=== PATIENT | female | born 1980 | race American Indian/Alaskan Native ===

== ENCOUNTER 2021-02-22 10:03 | Emergency (ER) | payer SELFPAY ==
[2021-02-22 11:47] VITALS: BP 148/95
--- NOTE | 2021-02-22 12:12 | Emergency Department Report ---
ED Back Pain/Injury HPI - General Chief Complaint: Back Pain/Injury Stated Complaint: BACK PAIN Time Seen by Provider: 02/22/21 12:04 Source: patient Limitations: No Limitations - History of Present Illness Initial Comments: Patient presents with lower back pain. She has had a history of disc disease. She last had an MRI she believes a decade ago. Over the last 10 years, she has actually lost weight. Her pain is worsened. It is still left-sided. There is still left radicular symptoms. She came in for evaluation treatment because her symptoms are getting worse. This does not seem to be responding to [id number] medications as previous. She denies new injury. She denies new numbness or tingling in the arms or legs. She has had no new saddle anesthesia. There is no new incontinence. She is primarily here for outpatient referral, analgesia, and follow-up. - Related Data Previous Rx's Medication Instructions Recorded Last Taken Type Ibuprofen [Motrin] 800 mg PO Q8HR PRN #30 tablet 02/22/21 Unknown Rx Lidocaine [Lidoderm] 1 each TP DAILY #30 patch 02/22/21 Unknown Rx Allergies Allergy/AdvReac Type Severity Reaction Status Date / Time No Known Allergies Allergy Unverified 02/22/21 11:47 ED Review of Systems ROS: Stated complaint: BACK PAIN Other details as noted in HPI Comment: All other systems reviewed and negative Constitutional: denies: fever Eyes: denies: vision change ENT: denies: throat pain Respiratory: denies: cough Cardiovascular: denies: chest pain Endocrine: denies: unexplained weight loss Gastrointestinal: denies: abdominal pain Genitourinary: denies: dysuria Musculoskeletal: as per HPI Skin: denies: rash Neurological: denies: headache Hematological/Lymphatic: denies: easy bruising ED Past Medical Hx - Past Medical History Previous Medical History?: Yes Additional medical history: Disc disease - Family History Family history: no significant - Medications Home Medications: Home Medications Medication Instructions Recorded Confirmed Last Taken Type Ibuprofen [Motrin] 800 mg PO Q8HR PRN #30 tablet 02/22/21 Unknown Rx Lidocaine [Lidoderm] 1 each TP DAILY #30 patch 02/22/21 Unknown Rx ED Physical Exam - General Limitations: No Limitations, Other (Pulse ox noted and normal) General appearance: alert, in no apparent distress - Head Head exam: Present: atraumatic, normocephalic - Eye Eye exam: Present: normal appearance, EOMI - ENT ENT exam: Present: normal orophraynx, normal external ear exam - Neck Neck exam: Present: normal inspection. Absent: meningismus - Respiratory Respiratory exam: Present: normal lung sounds bilaterally. Absent: respiratory distress - Cardiovascular Cardiovascular Exam: Present: regular rate, normal rhythm - GI/Abdominal GI/Abdominal exam: Present: soft. Absent: tenderness - Extremities Exam Extremities exam: Present: normal capillary refill - Back Exam Back exam: Present: paraspinal tenderness (Left paraspinous). Absent: CVA tenderness (R), CVA tenderness (L) - Neurological Exam Neurological exam: Present: alert, oriented X3, CN II-XII intact, normal gait, other (Negative straight leg raise) - Psychiatric Psychiatric exam: Present: normal affect, normal mood - Skin Skin exam: Present: warm, dry ED Course Vital Signs 02/22/21 11:43 Temperature 98.3 F Pulse Rate 76 Respiratory 16 Rate Blood Pressure 148/95 [Left] O2 Sat by Pulse 100 Oximetry - Reevaluation(s) Reevaluation #1: 02/22/21 15:37 Patient was discharged ED Medical Decision Making - Medical Decision Making Patient presents with acute exacerbation of chronic back pain. There is no new neurologic symptoms or deficit that would suggest cord injury or cauda equina. She has no fevers or other red flags that would suggest epidural abscess. Patient has no trauma to suggest acute compression fracture. She was referred for outpatient evaluation and consideration of MRI. Critical Care Time: No Critical care attestation.: If time is entered above; I have spent that time in minutes in the direct care of this critically ill patient, excluding procedure time. ED Disposition Clinical Impression: Lumbar radicular pain Disposition: HOME / SELF CARE / HOMELESS Is pt being admited?: No Condition: Stable Additional Instructions: USE ICE FOR PAIN. RETURN FOR PROBLEMS. SEE YOUR DOCTOR FOR RECHECK. Prescriptions: Lidocaine [Lidoderm] 1 each TP DAILY #30 patch Ibuprofen [Motrin] 800 mg PO Q8HR PRN #30 tablet PRN Reason: Pain, Moderate (4-6) Referrals: PRIMARY CARE, [Primary Care Provider] - 3-5 Days REHANA GTZ MD [Staff Physician] - 3-5 Days NICHOLAS HERMOSILLO II, MD [Staff Physician] - 3-5 Days
== END 2021-02-22 12:37 | disposition home or self-care (01) ==
LOC: ED 10:03
DX: M54.16 Radiculopathy, lumbar region (principal); Z79.899 Other long term (current) drug therapy
CPT/HCPCS: 99282